=== PATIENT | female | born 1990 | race Caucasian/White ===

== ENCOUNTER 2018-05-30 10:51 | Emergency (ER) | payer BC, OTHER ==
[~2018-05-30] VITALS: Ht 157.5 cm; Wt 62.3 kg
[2018-05-30 11:26] LABS: INR 0.9 INR; PROTHROMBIN TIME 9.8 SECONDS (9.0-12.0)
[2018-05-30 11:33] LABS: ALANINE AMINOTRANSFERASE 101 U/L (12-78); ALBUMIN 3.1 G/DL (3.4-5.0); ALBUMIN/GLOBULIN RATIO 0.7 (1.1-1.5); ALKALINE PHOSPHATASE 145 IU/L (46-116); ANION GAP 15 (8-16); ASPARTATE AMINO TRANSFERASE 42 U/L (10-37); BILIRUBIN,TOTAL 0.4 MG/DL (0.1-1.0); BLOOD UREA NITROGEN 14 MG/DL (7-18); BUN/CREATININE RATIO 21.5 (6.6-38.0); CALCIUM 9.6 MG/DL (8.5-10.1); CHLORIDE 103 MMOL/L (99-107); CREATININE 0.65 MG/DL (0.40-0.90); GLUCOSE 85 MG/DL (70-104); LIPASE 95 U/L (73-393); POTASSIUM 3.9 MMOL/L (3.5-5.1); SODIUM 142 MMOL/L (135-145); TOTAL CARBON DIOXIDE 24.5 MMOL/L (24-32); TOTAL PROTEIN 7.4 G/DL (6.4-8.2); eGFR > 90 ML/MIN
[2018-05-30 11:37] LABS: BASOPHILS % (AUTO) 0.3 % (0-1); EOSINOPHILS # (AUTO) 0.3 X10'3 (0-0.9); EOSINOPHILS % (AUTO) 2.3 % (0-6); HEMATOCRIT 40.5 % (35.0-45.0); HEMOGLOBIN 13.4 g/dl (12.0-16.0); LYMPHOCYTES # (AUTO) 1.7 X10'3 (1.1-4.8); LYMPHOCYTES % (AUTO) 14.7 % (21-51); MEAN CORPUSCULAR HGB CONC 33.1 % (33.0-36.5); MEAN CORPUSCULAR VOLUME 93.8 FL (78-98); MEAN PLATELET VOLUME 8.9 FL (7.4-10.4); MONOCYTES # (AUTO) 0.5 X10'3 (0-0.9); NEUTROPHILS # (AUTO) 9.3 X10'3 (1.8-7.7); NEUTROPHILS % (AUTO) 78.7 % (42-75); PLATELET COUNT 325 X10'3 (140-440); RED BLOOD COUNT 4.32 X10'6 (4.20-5.60); RED CELL DISTRIBUTION WIDTH 13.6 % (11.5-14.5); WHITE BLOOD COUNT 11.9 X10'3 (4.5-11.0)
[2018-05-30 12:53] VITALS: BP 118/71
== END 2018-05-30 12:55 | disposition home or self-care (01) ==
LOC: ER 10:52
DX: R10.13 Epigastric pain (principal)
CPT/HCPCS: 36415; 76700; 80053; 83690; 85025; 85610; 99285

== ENCOUNTER 2021-04-19 09:52 | Emergency (ER) | payer BC ==
[~2021-04-19] VITALS: Ht 157.5 cm; Wt 51.4 kg
[2021-04-19 10:39] LABS: URINE HCG NEGATIVE (NEG)
[2021-04-19 10:46] LABS: CLARITY,URINE CLEAR (Clear); COLOR,URINE YELLOW (Yellow); GLUCOSE, URINE NEGATIVE (Neg); KETONES,URINE 40 mg/dl (Neg); LEUKOCYTE ESTERASE ,URINE NEGATIVE (Neg); NITRITES, URINE NEGATIVE (Neg); OCCULT BLOOD,URINE TRACE-INTACT (Neg); PROTEIN,URINE NEGATIVE (Neg); UA COLLECTION TYPE CLN CATCH MIDSTREAM; UROBILINOGEN,URINE 0.2 E.U/dL (0.2-1.0)
[2021-04-19 10:48] LABS: BACTERIA,URINE FEW /HPF (Neg); MUCUS STRANDS FEW /LPF (Neg); RBC,URINE 0-2 /HPF (0-2); SQUAMOUS EPITHELIAL CELL,UR FEW /LPF (FEW); WBC,URINE 0-4 /HPF (0-4)
[2021-04-19 11:28] LABS: BASOPHILS % (AUTO) 0.4 % (0-1); EOSINOPHILS # (AUTO) 0.1 X10'3 (0-0.9); EOSINOPHILS % (AUTO) 0.6 % (0-6); HEMATOCRIT 40.7 % (35.0-45.0); LYMPHOCYTES # (AUTO) 0.7 X10'3 (1.1-4.8); LYMPHOCYTES % (AUTO) 7.7 % (21-51); MEAN CORPUSCULAR HEMOGLOBIN 30.3 PG (27.0-31.0); MEAN CORPUSCULAR HGB CONC 34.3 g/dL (33.0-36.5); MEAN CORPUSCULAR VOLUME 88.4 FL (78-98); MEAN PLATELET VOLUME 9.2 FL (7.4-10.4); MONOCYTES # (AUTO) 0.7 X10'3 (0-0.9); MONOCYTES % (AUTO) 7.9 % (2-12); NEUTROPHILS # (AUTO) 7.3 X10'3 (1.8-7.7); NEUTROPHILS % (AUTO) 83.4 % (42-75); PLATELET COUNT 250 X10'3 (140-440); RED BLOOD COUNT 4.61 X10'6 (4.20-5.60); RED CELL DISTRIBUTION WIDTH 12.4 % (11.5-14.5); WHITE BLOOD COUNT 8.8 X10'3 (4.5-11.0)
[2021-04-19 11:39] LABS: ALANINE AMINOTRANSFERASE 22 U/L (12-78); ALBUMIN 2.9 G/DL (3.4-5.0); ALBUMIN/GLOBULIN RATIO 0.6 (1.1-1.5); ALKALINE PHOSPHATASE 85 IU/L (46-116); ANION GAP 11 (8-16); ASPARTATE AMINO TRANSFERASE 11 U/L (10-37); BILIRUBIN,TOTAL 0.4 MG/DL (0.1-1.0); BLOOD UREA NITROGEN 11 MG/DL (7-18); BUN/CREATININE RATIO 15.3 (6.6-38.0); CALCIUM 9.1 MG/DL (8.5-10.1); CHLORIDE 105 MMOL/L (99-107); CREATININE 0.72 MG/DL (0.40-0.90); GLUCOSE 89 MG/DL (70-104); LIPASE 74 U/L (73-393); POTASSIUM 3.6 MMOL/L (3.5-5.1); SODIUM 141 MMOL/L (135-145); TOTAL CARBON DIOXIDE 24.7 MMOL/L (24-32); TOTAL PROTEIN 7.6 G/DL (6.4-8.2); eGFR > 90 ML/MIN
[2021-04-19] MEDS ORDERED: mag hydrox/Alum hydrox/simeth 30ml oral suspension PO ONE (12:05)
[2021-04-19] MEDS ORDERED: LIDOcaine Viscous 15ml cup MM ONE (12:05)
[2021-04-19] MEDS ORDERED: PANT-47 PO (12:19)
[2021-04-19 12:23] VITALS: BP 115/67
--- NOTE | 2021-04-19 14:05 | NUR ---
Called in prescription of protonix 40 mg PO daily Disp 30 with no refills per Memo HUTTON. Patient requested rx called in to [facility] in [place].
== END 2021-04-19 12:25 | disposition home or self-care (01) ==
LOC: ER 09:53
DX: R10.11 Right upper quadrant pain (principal); R11.2 Nausea with vomiting, unspecified; R19.7 Diarrhea, unspecified
CPT/HCPCS: 36415; 76700; 80053; 81001; 81025; 83690; 85025; 99284

== ENCOUNTER 2022-03-02 07:49 | Emergency (ER) | payer BC ==
[~2022-03-02] VITALS: Ht 157.5 cm; Wt 52.3 kg
[~2022-03-02 07:49] MED LIST: PANT-47 PO
[2022-03-02 07:52] VITALS: BP 132/72
[2022-03-02] MEDS ORDERED: ORPH100T2 PO (10:44)
== END 2022-03-02 11:08 | disposition home or self-care (01) ==
LOC: ER 07:49
DX: S13.4XXA Sprain of ligaments of cervical spine, initial encounter (principal); S16.1XXA Strain of muscle, fascia and tendon at neck level, initial encounter; Z72.89 Other problems related to lifestyle; W01.0XXA Fall on same level from slipping, tripping and stumbling without subsequent striking against object, initial encounter; Y93.72 Activity, wrestling; Y92.89 Other specified places as the place of occurrence of the external cause; Y99.8 Other external cause status
CPT/HCPCS: 72040; 72125; 99284

== ENCOUNTER 2025-07-03 09:45 | Emergency (ER) | payer BC ==
[~2025-07-03] VITALS: Ht 157.5 cm; Wt 58.3 kg
[~2025-07-03 09:45] MED LIST changes: +ORPH100T4 PO
--- NOTE | 2025-07-03 10:34 | Physician Documentation ---
History of Present Illness ~ Chief Complaint: Headache Stated Complaint: HEAD PAIN Time Seen by MD: 10:31 HPI 35-year-old female presents to the ED with a complaint of acute onset unilateral left-sided I headache that radiates to her ear. Denies any vision changes or eyelid drooping. Denies any history of hypertension. Denies any exacerbating or alleviating symptoms also denies vomiting, but reportsmild nausea. States a history of anxiety Day of Onset: Jul 03, 2025 Medication Reconciliation Allergies: Coded Allergies: No Known Allergies (Unverified , 07/03/25) Scheduled Orphenadrine Citrate (Norflex), 1 TAB PO Q12H PRN Pantoprazole Sodium (PROTONIX tablet), 1 TAB PO DAILY Past Medical History Past Medical History: *GI/HEPATOBILIARY* Past Surgical History: no surgical history Alcohol Use: Occasionally Drug Use: none Lives with: Family Lives In: Home Occupation: employed Review of Systems All Other Systems at this time: Reviewed and Negative ROS As stated above in the HPI, otherwise all systems are reviewed and negative. Physical Exam Vital Signs: Temperature: 98.9, Source: Temporal, Heart Rate: 82, Respiratory Rate: 18, BP: 110/72, Pulse Oximetry: 98, Weight: 58.300 Oxygen Flow Rate: 0 Physical Exam General: Alert, no apparent distress. HEENT: PERRL, EOMI, no injection, moist mucous membranes. Neck: Full range of motion. Respiratory: Lungs clear, no respiratory distress. Chest: No accessory muscle use. Cardiovascular: Regular rate and rhythm, no murmurs. Gastrointestinal: Soft, nontender, nondistended. Bowels sounds present. Extremities: Normal range of motion, no deformity. Neurologic: Oriented x4. Psychiatric: Normal mood and affect. Skin: Normal color, warm and dry. No edema, no ecchymosis. Progress Results/Orders Results/Orders Orders - LAMIN SHEN NP General Nursing Order (07/03/25 ) Completed Orders - LAMIN SHEN [employer] Sumatriptan Succ. Inj. (Imitrex 6mg Inj. (07/03/25 10:35) Ketorolac Trometh 30mg/Ml Vial (Toradol (07/03/25 10:35) Normal Saline 1000ml (0.9% Sodium Chlori (07/03/25 11:05) Metoclopramide Inj (Reglan Inj) (07/03/25 11:05) Diphenhydramine Inj (Benadryl Inj.) (07/03/25 11:05) Dexamethasone Inj (Decadron 10mg/Ml Inj) (07/03/25 11:44) Medications Received in ER Medications (Trade) Dose Ordered Sig/Blade Route PRN Reason Start Time Stop Time Status Last Admin Dose Admin (Imitrex 6mg inj.) 6 mg ONCE ONCE SQ 07/03/25 10:35 07/03/25 10:36 DC 07/03/25 11:19 6 MG (Toradol inj. 30mg/ml) 30 mg ONCE ONCE IM 07/03/25 10:35 07/03/25 10:36 DC 07/03/25 10:45 30 MG (0.9% sodium chloride (NS) 1000ml IV soln) 1,000 ml ONCE ONCE IVB 07/03/25 11:05 07/03/25 11:10 DC 07/03/25 11:14 1,000 ML (Reglan inj) 5 mg ONCE ONCE IV 07/03/25 11:05 07/03/25 11:10 DC 07/03/25 11:19 5 MG (Benadryl inj.) 25 mg ONCE ONCE IV 07/03/25 11:05 07/03/25 11:10 DC 07/03/25 11:19 25 MG (Decadron 10mg/ ml inj) 10 mg ONCE STAT PO 07/03/25 11:44 07/03/25 11:45 DC 07/03/25 11:53 10 MG Vital Signs 07/03/25 07/03/25 07/03/25 07/03/25 10:21 10:45 10:50 11:23 Temp 98.9 97.8 Pulse 82 97 Resp 18 18 20 18 B/P (MAP) 110/72 114/61 (78) Pulse Ox 98 97 O2 Flow Rate 0 0 Medical Decision Making Additional information obtaine: old records Findings Patient was treated with fluids antiemetics antihistamines NSAIDs, a Triptan and corticosteroids to treat her headache. She reported modest improvement. At this time I do not see any reason to pursue CT imaging. Does not present with signs that would indicate temporal arteritis, trigeminal neuralgia, stroke. These differentials I considered but are not limited to. At this time I am going to discharge her for evaluation in the outpatient setting. In addition Differential Dx:Considerations: Include: MILES-Cluster, MILES-Migraine, MILES- Hypertensive, MILES-Muscular contraction, MILES-Post lumbar puncture, Carbon monoxide toxicity, Close head injuyr, CVA, Fever induced, Hemorrhage-Epidural, Hemorrhage-Intracerebral, Hemorrhage-Subarachnoid, Hemorrhage-Subdural, Mass lesion, Meningitis, Post-traumtic, Pseudotumor cerebri, Sinusitis, Temporal arteritis, Trigeminal neuralgia, Other Departure Disposition: 01 HOME / SELF CARE / HOMELESS Impression: Primary Impression: Headache Discharge Instructions: Headache, Migraine Headache Additional Instructions: You are happy to treat she had a for your headache and we hope that you feel better please follow up with your primary care if this headache and facial pain persists for further evaluation and potential neurological referral Referrals: NO PRIMARY CARE PROVIDER (PCP) Signature Scribe Signature: d Attestation: Scribed for Lamin Shen Np by Lamin Patel NP . 07/03/25 10:33 LAMIN SHEN NP Jul 03, 2025 10:34
[2025-07-03] MEDS: ketorolac trometh 30MG/ML vial 30 MG/ML VIAL IM ONE (10:45)
[2025-07-03 10:50] VITALS: TEMP 97.8
[2025-07-03] MEDS: normal saline 1000ML IV soln IVB ONE (11:14)
[2025-07-03] MEDS: metoclopramide 5 mg/ml inj IV ONE (11:19)
[2025-07-03] MEDS: SUMAtriptan succ. 6 MG/0.5ml vial SQ ONE (11:19)
[2025-07-03] MEDS: dexamethasone sod phosphate 10mg/ml inj PO STA (11:53)
[2025-07-03 12:11] VITALS: BP 110/56; PULSE 91; RESP 16; O2SAT 98
== END 2025-07-03 12:13 | disposition home or self-care (01) ==
LOC: ER 09:46
DX: R51.9 Headache, unspecified (principal); Z72.89 Other problems related to lifestyle; Z79.899 Other long term (current) drug therapy
CPT/HCPCS: 96372; 96374; 96375; 99284; J1100; J1200; J1885; J2765; J3030; J7030